=== PATIENT | male | born 1975 | race Caucasian/White ===

== ENCOUNTER 2022-09-14 16:10 | Outpatient (CLI) | payer OTHER, SELFPAY ==
--- NOTE | ~2022-09-14 | XR_ITS ---
EXAMINATION: XR abdomen/kub 1V INDICATION: Calculus of the kidney, flank pain TECHNIQUE: Supine views of the abdomen were obtained on 2 radiographs. COMPARISON: 02/08/2014 FINDINGS: There is a 3 mm stone in the left kidney. A 3 mm stone is also noted in the right kidney. N o stones are identified along the expected courses of the ureters or in the urinary bladder. There ar e phleboliths of the pelvis. The bowel gas pattern is normal. There is mild osteoarthritis of the hip s. IMPRESSION: 1. Bilateral nephrolithiasis. Reviewed, dictated and finalized at location A.
== END 2022-09-14 16:11 | disposition home or self-care (01) ==
PROVIDERS: Visit Provider Urology
DX: N20.0 Calculus of kidney (principal)
CPT/HCPCS: 74018